=== PATIENT | female | born 1985 | race African-American/Black ===

== ENCOUNTER 2019-08-30 18:40 | Emergency (ER) | payer OTHER, SELFPAY ==
[2019-08-30 18:54] VITALS: BP 160/93; PULSE 97; RESP 16; TEMP 36.9; O2SAT 98
[2019-08-30 19:13] LABS: Glucose Point of Care 299 (65-105)
--- NOTE | 2019-08-30 19:34 | ED.GENADULT ---
HPI - General Adult General Chief complaint: Urogenital-Female Stated complaint: ABD PAIN EYES BURNING AND ITCHING Time Seen by Provider: 08/30/19 19:34 Source: patient and RN notes reviewed Mode of arrival: ambulatory Limitations: no limitations History of Present Illness HPI narrative: 33-year-old female presents with complaints of abdominal pain, polyuria, polydipsia, and intermittent blurred vision for the past 2 days. Symptoms has increased over the last 24 hours with increase suprapubic pain and urinary frequency. Tylenol and eye drops without relief. Non-complaint diabetic with hypertension and asthma. Marcela says she has been without medication for approximately 3 months. October says she is depressed but denies suicidal or homicidal ideation. Lost a child at 3 months ago. Denies URI symptoms at this time, had some 1 week ago. Denies hematuria, burning, and painful urination. Denies recent weight loss, rapid heart beat, dizziness, lightheadedness, headache, and alter mental status. Denies fever or chills. Denies nausea or vomiting. Denies chest pain or shortness of breath. October denies being , LMP 07/30/2019 due any day. Some parts of this dictation were generated by voice recognition software and may contain typographical and/or grammatical inaccuracies. Related Data Home Medications Medication Instructions Recorded Confirmed No Home Medications 08/30/19 08/30/19 Allergies Allergy/AdvReac Type Severity Reaction Status Date / Time shellfish derived Allergy Unknown Swelling Verified 08/30/19 18:57 Mushroom Allergy Unknown Rash Uncoded 08/30/19 18:57 Review of Systems Review of Systems: Narrative: CONSTITUTIONAL: Denies fever, chills, sweats. EYES: Denies visual changes, redness, discharge. Complains of intermittent blurred vision. ENT: Denies rhinorrhea, congestion, sore throat, otalgia. CARDIOVASCULAR: Denies chest pain, palpitations, edema. RESPIRATORY: Denies dyspnea, wheezing, cough. GASTROINTESTINAL: Complains of abdominal pain, polydipsia. Denies nausea, vomiting, diarrhea. GENITOURINARY: Complains of polyuria. Denies dysuria, hematuria, abnormal discharge. SKIN: Denies rash or itching. MUSCULOSKELETAL: Denies acute back pain, joint pain, or myalgia. NEUROLOGIC: Denies numbness or focal weakness. PSYCHIATRIC: Denies anxiety. Complains of depression. Denies suicidal or homicidal ideation. All other systems reviewed are negative, except as documented in HPI and below. [facility] Past Medical History Medical History (Updated 08/31/19 @ 22:57 by KEYA Carpio) Anxiety Asthma Bipolar disorder Depression Diabetes Hypertension Surgical History Surgical History (Updated 08/30/19 @ 20:32 by KEYA Carpio) History of section X4 History of myringoplasty Social History Social History Gender identity (if verbalized by the patient): Female Exam Narrative: Exam Narrative: GENERAL: This is a well-nourished, well-developed patient, in no apparent distress. Talks in full sentences and ambulates with steady gait without dyspnea. HEAD: normocephalic, atraumatic. EYES: PERRL. Sclera clear/white. Vision is grossly intact. EARS: External ears normal, auditory canals clear and without drainage, TMs normal without perforation. Hearing grossly intact. NOSE: External nose normal with no obvious nasal discharge, nares without redness, no rhinorrhea. THROAT: Mucous membranes moist, posterior pharynx clear. NECK: Neck supple, non-tender without lymphadenopathy, masses or thyromegaly. CARDIOVASCULAR: Regular rate and rhythm without murmurs, gallops, or rubs. RESPIRATORY: Clear to auscultation. Breath sounds equal bilaterally. No wheezes, rales, or rhonchi. GASTROINTESTINAL: Abdomen large, round, soft, with mild-moderate tenderness on palpation, nondistended. Bowel sounds are active. No hepato-splenomegaly, or palpable
== END 2019-08-30 19:53 | disposition short-term general hospital (02) ==
LOC: EXPCOLL 18:42
PROVIDERS: Emergency Provider Nurse Practitioner Family
DX: E11.65 Type 2 diabetes mellitus with hyperglycemia (principal); I10 Essential (primary) hypertension
CPT/HCPCS: 81003; 82948; 99212; G0463

== ENCOUNTER 2019-09-07 21:55 | Emergency (ER) | payer OTHER, SELFPAY ==
--- NOTE | 2019-09-07 22:05 | PC.NURSE ---
Pt called to triage. At that time pt recieved a phone call and stated that she had to go.
== END 2019-09-07 22:05 | disposition left against medical advice (07) ==
LOC: ANHED 22:12
DX: Z53.21 Procedure and treatment not carried out due to patient leaving prior to being seen by health care provider (principal)
CPT/HCPCS: 99199

== ENCOUNTER 2019-09-07 22:22 | Emergency (ER) | payer OTHER, SELFPAY ==
--- NOTE | ~2019-09-07 | US_ITS ---
EXAMINATION: US OB <=14 wk fetus w TV DATE: 09/08/2019 01:20 INDICATION: Vaginal bleeding with positive hCG. TECHNIQUE: Real-time pelvic ultrasound utilizing both a transvaginal and transabdominal probe was pe rformed. The interpreting radiologist was not present for the study. COMPARISON: None. FINDINGS: The uterus measures 7.8 x 5.4 x 5.8 cm. Endometrial complex measures 9 mm. No intrauterine gestation al sac or fluid. The right ovary measures 1.9 x 1.6 x 1.5 cm. The left ovary measures 1.7 x 1.2 x 1.9 cm. No abnormal adnexal masses identified. There is no free fluid in the pelvis. IMPRESSION: 1. Normal pelvic ultrasound with no intrauterine gestational sac. In the setting of positive hCG diff erential would remain early , failed or less likely nonvisualized ectopic pregnanc y. Reviewed, dictated and finalized at location A. [employer] IMPRESSION: 1. Normal pelvic ultrasound with no intrauterine gestational sac. In the settin g of positive hCG differential would remain early , failed o r less likely nonvisualized ectopic .
[2019-09-07 22:27] VITALS: BP 198/141; PULSE 102; RESP 18; TEMP 36.3; O2SAT 100
--- NOTE | 2019-09-07 23:48 | ED.FEMALEGU ---
HPI - Female Genitourinary General Chief complaint: Vaginal Bleeding Stated complaint: possible miscarriage Time Seen by Provider: 09/07/19 23:42 Source: patient and RN notes reviewed Mode of arrival: ambulatory Limitations: no limitations History of Present Illness HPI Narrative: A 33 y/o female, who is A1, presents to the ED with vaginal spotting beginning earlier today. She states that over the past 2 weeks she has had 5+ at home tests, so she is afraid that she is having a miscarriage. She reports associated lower ABD and lower back cramping. She notes that she has been under more stress because her grandmother just and that she has a hx of a miscarriage. She also notes that her LNMP was on 07/30/19. She denies any fevers, chills, CP, N/V/D, or SOB. MD elicited complaint: vaginal bleeding (spotting) Pertinent past history: prior miscarriages Onset (ago): hour(s) (earlier today) Location of symptoms: vaginal Vaginal bleeding: scant Associated symptoms: abdominal pain (lower cramping) and other (lower back cramping pain) Patient : Yes Possible : at home test positive (x5) Date of Last Menstrual Period: 07/30/19 Related Data : 6 Para: 4 Total number of abortions (spontaneous and elective): 1 Home Medications Medication Instructions Recorded Confirmed lisinopril 20 mg PO DAILY 09/07/19 metformin 500 mg PO BID 09/07/19 Allergies Allergy/AdvReac Type Severity Reaction Status Date / Time shellfish derived Allergy Unknown Swelling Verified 09/07/19 22:23 Mushroom Allergy Unknown Rash Uncoded 09/07/19 22:23 Review of Systems Review of Systems: All systems reviewed & are unremarkable except as noted in HPI and below Constitutional: Constitutional: Denies chills and Denies fever(s) Cardiovascular: Cardiovascular: Denies chest pain Respiratory: Respiratory: Denies dyspnea Gastrointestinal: Gastrointestinal: Reports abdominal pain (lower cramping), Denies diarrhea, Denies nausea and Denies vomiting Genitourinary: Genitourinary: Reports abnormal vaginal bleeding (spotting) Musculoskeletal: Musculoskeletal: Reports back pain (lower cramping) PMFSH Past Medical History Medical History Anxiety Asthma Bipolar disorder Depression Diabetes Eczema Hypertension Surgical History Surgical History History of section X4 History of myringoplasty Social History Social History Smoking packs per day: 0.5 Smoking cigarettes per day: 10.0 Smoking status: Current every day smoker Second hand tobacco smoke exposure: Yes Gender identity (if verbalized by the patient): Female Exam Narrative: Exam Narrative: GENERAL: Well-appearing, well-nourished, and in no acute distress. HEAD: Normocephalic, atraumatic. ENT: Mucous membranes moist. CHEST: Clear to auscultation. No respiratory distress. HEART: Regular rate and rhythm. Normal peripheral pulses. ABDOMEN: Soft, nontender, nondistended, normal active bowel sounds. Pelvic: Deferred by patient. EXTREMITIES: Normal range of motion. No edema. NEURO: Alert and oriented x3. Course Course Emergency Course: Patient informed of results. She is declined pelvic exam. Is felt patient is likely having a miscarriage given the fact that she had positive test last week at home and it is now essentially negative and her blood level is 7. Recommend that she follow-up with her OB and have repeat testing to ensure that her has truly failed and that she is not in early . Patient verbalized understanding. Vital Signs Vital signs: Vital Signs Temperature 97.3 F L 09/07/19 22:27 Pulse Rate 102 H 09/07/19 22:27 Respiratory Rate 18 09/07/19 22:27 Blood Pressure 198/141 H 09/07/19 22:27 Pulse Oximetry 100 09/07/19 22:27 Temperature 97.3 F L 0
[2019-09-08 00:52] LABS: Basophils Absolute Auto 0.1 K/mm3 (0.0-0.1); Basophils Percent Auto 0.5 % (0.2-1.2); Eosinophils Absolute Auto 0.2 K/mm3 (0-0.3); Eosinophils Percent Auto 1.4 % (0-4.4); Hemoglobin 13.5 g/dL (12.0-15.0); Immature Granulocyte Absolute 0.14 K/mm3 (0.00-0.031); Immature Granulocyte Percent A 0.9 % (0-0.5); Mean Corpuscular HGB Conc 32.1 g/dl (32-36); Mean Corpuscular Hemoglobin 27.2 pg (26-34); Mean Corpuscular Volume 84.7 fl (80-100); Mean Platelet Volume 8.5 fl (7.4-10.4); Monocytes Absolute Auto 0.7 K/mm3 (0.1-0.6); Monocytes Percent Auto 4.5 % (2.6-8.5); Neutrophils Absolute Auto 10.3 K/mm3 (1.3-6.7); Neutrophils Percent Auto 66.7 % (45.5-73.1); Platelet Count Result 399 k/mm3 (150-375); Red Blood Count 4.96 M/mm3 (4.2-5.4); White Blood Count 15.4 K/mm3 (4.5-10.0)
--- NOTE | 2019-09-08 01:14 | PC.NURSE ---
Patient taken to US.
[2019-09-08 01:31] LABS: Beta HCG Quantitative 7.78 mIU/ML
[2019-09-08 01:53] VITALS: BP 167/105; PULSE 89; RESP 18; O2SAT 100
== END 2019-09-08 02:44 | disposition home or self-care (01) ==
PROVIDERS: Emergency Provider Emergency Medicine
DX: O20.0 Threatened abortion (principal); O24.111 Pre-existing type 2 diabetes mellitus, in pregnancy, first trimester; E11.9 Type 2 diabetes mellitus without complications; Z79.84 Long term (current) use of oral hypoglycemic drugs; O10.911 Unspecified pre-existing hypertension complicating pregnancy, first trimester; O99.331 Smoking (tobacco) complicating pregnancy, first trimester; F17.210 Nicotine dependence, cigarettes, uncomplicated; Z3A.00 Weeks of gestation of pregnancy not specified
CPT/HCPCS: 36415; 76801; 76817; 84702; 85025; 86900; 86901; 99284

== ENCOUNTER 2020-10-26 14:04 | Emergency (ER) | payer OTHER, SELFPAY ==
--- NOTE | ~2020-10-26 | XR_ITS ---
XR knee LT 3V DATE: 10/26/2020 14:45 INDICATION: Fell down steps onto concrete one hour ago. Left knee injury, pain TECHNIQUE: [place], AP and lateral views; gonadal shielding COMPARISON: None FINDINGS: There is slight periarticular spurring of the lateral tibial plateau consistent with minima l osteoarthritis. Medial and lateral compartment and patellofemoral compartment joint spaces are rela tively well preserved. No fracture or dislocation or joint effusion. No periosteal reaction or bone destruction. IMPRESSION: No fracture or dislocation or joint effusion Reviewed, dictated and finalized at location A.
[2020-10-26 14:18] VITALS: BP 153/80; PULSE 105; RESP 20; TEMP 36.9; O2SAT 100
--- NOTE | 2020-10-26 14:29 | ED.LOWEXIN ---
HPI - Extremity Injury (Lower) General Chief Complaint: Extremity Injury, Lower Stated Complaint: Knee and ankle pain Time Seen by Provider: 10/26/20 14:18 Source: patient and RN notes reviewed Mode of arrival: ambulatory Limitations: no limitations History of Present Illness HPI Narrative: Patient presents today complaining of left knee and ankle injury just prior to arrival. States she slipped down 4 stairs at her home, twisting her knee and ankle. Denies numbness or tingling in the leg or foot. Currently rates her pain 8/10. Pain increases with weightbearing. She has not tried any treatment prior to arrival. She has been ambulatory since the injury. MD complaint: leg injury Related Data Home Medications Medication Instructions Recorded Confirmed No Home Medications 10/26/20 10/26/20 Allergies Allergy/AdvReac Type Severity Reaction Status Date / Time shellfish derived Allergy Unknown Swelling Verified 10/26/20 14:11 Mushroom Allergy Unknown Rash Uncoded 10/26/20 14:11 Review of Systems Review of Systems: Narrative: CONSTITUTIONAL: Denies body aches, fever, chills, or sweats. EYES: Denies visual changes, redness, or discharge. ENT: Denies rhinorrhea, congestion, sore throat, or otalgia. CARDIOVASCULAR: Denies chest pain, palpitations, or edema. RESPIRATORY: Denies cough or dyspnea. GASTROINTESTINAL: Denies abdominal pain, nausea, vomiting, or diarrhea. GENITOURINARY: Denies dysuria or hematuria. SKIN: Denies rash, itching, or wounds. MUSCULOSKELETAL: Denies back pain, or myalgia. + Left knee and ankle injury NEUROLOGIC: Denies headache, numbness, tingling, or weakness. PSYCH: Denies depression or anxiety. [facility] Past Medical History Medical History (Updated 10/26/20 @ 15:20 by Tamela Garrido, KEYA, ZAINAB) Anxiety Asthma Bipolar disorder Depression Diabetes Eczema Hypertension Surgical History Surgical History History of section X4 History of myringoplasty Social History Social History Smoking packs per day: 0.5 Smoking cigarettes per day: 10.0 Smoking status: Current every day smoker Second hand tobacco smoke exposure: Yes Gender identity (if verbalized by the patient): Female Comments At time of signature, I have reviewed and agree with nursing past medical, surgical, social and family history unless otherwise noted. Please see nursing chart for further information. There is no relevant family history pertinent to the presenting complaint Exam Narrative: Exam Narrative: GENERAL: Well-appearing, well-nourished, and in no acute distress. HEAD: Normocephalic, atraumatic. EYES: EOMI. No redness or drainage. Conjunctivae normal. ENT: Mucous membranes pink and moist. NECK: Normal AROM. CHEST: No respiratory distress. EXTREMITIES: Left knee: Bony tenderness to the lateral patella and lateral knee joint. No edema, ecchymosis noted. Very minor subcentimeter abrasion noted to the lateral knee. No abnormal movement of the patella. No tenderness to the patellar tendon. Full range of motion of the knee without increased pain. No tenderness to the medial knee or medial patella. No tenderness to the posterior knee. Patient does have some bony tenderness to the proximal fibula. Left ankle: No bony tenderness to the medial or lateral ankle. Patient has some point soft tissue tenderness to the anterior ankle without edema, ecchymosis, or erythema. Full AROM without increased pain. Distal sensation intact. Capillary refill normal. Pedal pulse normal. SKIN: Warm, dry, no rash. Capillary refill normal. Normal skin turgor. NEURO: No focal deficits. Alert and oriented x3. Gait steady. PSYCH: Normal affect. No signs of depression or anxiety. Course Vital Signs Vital signs: Vital Signs Temperature 98.5 F 10/26/20 14:18 Pulse Rate 105 H 10/26/20 14:
== END 2020-10-26 15:22 | disposition home or self-care (01) ==
PROVIDERS: Emergency Provider Nurse Practitioner
DX: S86.912A Strain of unspecified muscle(s) and tendon(s) at lower leg level, left leg, initial encounter (principal); S93.402A Sprain of unspecified ligament of left ankle, initial encounter; W10.9XXA Fall (on) (from) unspecified stairs and steps, initial encounter; F17.210 Nicotine dependence, cigarettes, uncomplicated; J45.909 Unspecified asthma, uncomplicated; E11.9 Type 2 diabetes mellitus without complications; I10 Essential (primary) hypertension
CPT/HCPCS: 73562; 99213; G0463

== ENCOUNTER 2020-11-13 19:52 | Emergency (ER) | payer OTHER, SELFPAY ==
[2020-11-13 19:58] VITALS: BP 154/94; PULSE 106; RESP 18; TEMP 38.1; O2SAT 98
--- NOTE | 2020-11-13 20:29 | ED.GENADULT ---
HPI - General Adult General Chief complaint: Upper Respiratory Infection Stated complaint: Body Aches,Headache Time Seen by Provider: 11/13/20 20:29 Source: patient Mode of arrival: ambulatory Limitations: no limitations History of Present Illness HPI narrative: 35-year-old female patient presents to the [facility] with complaints of cold symptoms that started yesterday. Patient states she laid down to take a nap she is feeling tired woke up with headache, congestion and chills and body aches. Denies any cough, chest pain or shortness of breath. Denies any ear pain, runny nose, stuffy nose or sore throat. Patient denies taking anything for her symptoms since they began. Patient states that she is an active smoker. Related Data Allergies Allergy/AdvReac Type Severity Reaction Status Date / Time shellfish derived Allergy Unknown Swelling Verified 11/13/20 20:02 Mushroom Allergy Unknown Rash Uncoded 11/13/20 20:02 Review of Systems Review of Systems: Narrative: CONSTITUTIONAL: Positive fever, body aches, chills, denies sweats. EYES: Denies visual changes, redness, or discharge. ENT: Denies rhinorrhea, positive congestion, denies sore throat, or otalgia. CARDIOVASCULAR: Denies chest pain, palpitations, or edema. RESPIRATORY: Denies cough or dyspnea. GASTROINTESTINAL: Denies abdominal pain, nausea, vomiting, or diarrhea. GENITOURINARY: Denies dysuria or hematuria. SKIN: Denies rash or itching. MUSCULOSKELETAL: Denies back pain, joint pain, or myalgia. NEUROLOGIC: Positive headache, denies numbness, or weakness. PSYCHIATRIC: Denies anxiety or depression. [facility] Past Medical History Medical History (Updated 11/13/20 @ 20:35 by KEYA Hayden) Anxiety Asthma Bipolar disorder Depression Diabetes Eczema Hypertension Surgical History Surgical History History of section X4 History of myringoplasty Social History Social History Smoking packs per day: 0.5 Smoking cigarettes per day: 10.0 Smoking status: Current every day smoker Second hand tobacco smoke exposure: Yes Gender identity (if verbalized by the patient): Female Comments At the time of my signature I agree with nursing past medical history, surgical, social, and family history. There is no relevant family history pertinent to the presenting complaint. Exam Narrative: Exam Narrative: GENERAL: ill-appearing, well-nourished, and in no acute distress. HEAD: Normocephalic, atraumatic. EYES: PERRLA and EOMI. ENT: Nares with erythema and edema noted bilaterally with the right nares swollen shut, yellow rhinorrhea, no epistaxis. Mucous membranes moist. Bilateral TMs with no erythema, foreign bodies to the canal. Posterior pharynx with slight erythema noted but no tonsil enlargement. NECK: Supple. No lymphadenopathy CHEST: Clear to auscultation. No respiratory distress. Patient able talk in clear complete sentences. HEART: Regular rate and rhythm. No murmur heard. Normal peripheral pulses. ABDOMEN: Soft, nontender, nondistended, normal active bowel sounds. EXTREMITIES: Normal range of motion. No edema. SKIN: Warm, dry, no rash. NEURO: No focal deficits. Alert and oriented x3. Course Vital Signs Vital signs: Vital Signs Temperature 38.1 C H 11/13/20 19:58 Pulse Rate 106 H 11/13/20 19:58 Respiratory Rate 18 11/13/20 19:58 Blood Pressure 154/94 H 11/13/20 19:58 Pulse Oximetry 98 11/13/20 19:58 Temperature 38.1 C H 11/13/20 19:58 Pulse Rate 106 H 11/13/20 19:58 Respiratory Rate 18 11/13/20 19:58 Blood Pressure 154/94 H 11/13/20 19:58 Pulse Oximetry 98 11/13/20 19:58 Vital signs reviewed The patient has been informed that they may have pre-hypertension or Hypertension based on a BP reading in the department. I recommend that the patient call the primary care provider listed on their discharge instructio
[2020-11-14 21:01] LABS: SARS-CoV-2 RNA PCR Positive
== END 2020-11-13 20:36 | disposition home or self-care (01) ==
PROVIDERS: Emergency Provider Nurse Practitioner Family
DX: U07.1 COVID-19 (principal); F17.210 Nicotine dependence, cigarettes, uncomplicated; J45.909 Unspecified asthma, uncomplicated; E11.9 Type 2 diabetes mellitus without complications; I10 Essential (primary) hypertension
CPT/HCPCS: 87804; 99213; C9803; G0463; U0003; U0005

== ENCOUNTER 2021-01-19 17:02 | Emergency (ER) | payer OTHER, SELFPAY ==
[2021-01-19 17:12] VITALS: BP 136/83; PULSE 95; RESP 16; TEMP 36.7; O2SAT 99
--- NOTE | 2021-01-19 18:12 | ED.GENADULT ---
HPI - General Adult General Chief complaint: Urogenital-Female Stated complaint: Abdominal Pain Time Seen by Provider: 01/19/21 18:05 Source: patient and RN notes reviewed Mode of arrival: ambulatory Limitations: no limitations History of Present Illness HPI narrative: Patient presents today complaining of lower abdominal discomfort, urinary frequency since yesterday. She came to the urgent care today requesting evaluation for UTI. Denies dysuria, hematuria, urgency. She has not tried any [id number] treatment prior to arrival. MD complaint: Abdominal discomfort, urinary frequency Related Data Allergies Allergy/AdvReac Type Severity Reaction Status Date / Time shellfish derived Allergy Unknown Swelling Verified 01/19/21 17:34 Mushroom Allergy Unknown Rash Uncoded 01/19/21 17:34 Review of Systems Review of Systems: Narrative: CONSTITUTIONAL: Denies body aches, fever, chills, or sweats. EYES: Denies visual changes, redness, or discharge. ENT: Denies rhinorrhea, congestion, sore throat, or otalgia. CARDIOVASCULAR: Denies chest pain, palpitations, or edema. RESPIRATORY: Denies cough or dyspnea. GASTROINTESTINAL: Denies abdominal pain, nausea, vomiting, or diarrhea. GENITOURINARY: Denies dysuria or hematuria.+ Lower abdominal discomfort, urinary frequency SKIN: Denies rash, itching, or wounds. MUSCULOSKELETAL: Denies back pain, joint pain, or myalgia. NEUROLOGIC: Denies headache, numbness, tingling, or weakness. PSYCH: Denies depression or anxiety. [facility] Past Medical History Medical History (Updated 01/19/21 @ 18:57 by Tamela Garrido, KEYA, ) Anxiety Asthma Bipolar disorder Depression Eczema Gestational diabetes Hypertension Surgical History Surgical History History of section X4 History of myringoplasty Social History Social History Smoking packs per day: 0.5 Smoking cigarettes per day: 10.0 Smoking status: Current every day smoker Second hand tobacco smoke exposure: Yes Gender identity (if verbalized by the patient): Female Comments At time of signature, I have reviewed and agree with nursing past medical, surgical, social and family history unless otherwise noted. Please see nursing chart for further information. There is no relevant family history pertinent to the presenting complaint Exam Narrative: Exam Narrative: GENERAL: Well-appearing, well-nourished, and in no acute distress. HEAD: Normocephalic, atraumatic. EYES: EOMI. No redness or drainage. Conjunctivae normal. ENT: Mucous membranes pink and moist. NECK: Normal AROM. CHEST: No respiratory distress. Clear to auscultation. HEART: Regular rate and rhythm. No murmur appreciated. Normal peripheral pulses. ABDOMEN: Soft, nontender, nondistended, normal active bowel sounds. MUSCULOSKELETAL: No bony tenderness. EXTREMITIES: Normal range of motion. No edema. SKIN: Warm, dry, no rash. Capillary refill normal. Normal skin turgor. NEURO: No focal deficits. Alert and oriented x3. Gait steady. PSYCH: Normal affect. No signs of depression or anxiety. Course Course Emergency Course: 1814- Called ER to transfer patient for blood glucose of 423. Spoke with Aly Jensen PA-C. States she would like me to call the PCP environmental consultant, Dr. Zepeda to see about outpatient management instead of transfer first since patient is unlikely in DKA. Will call Katelyn to discuss his opinion. 1820- Got ahold of Dr. Zepeda's answering service and left message for call back. 1844- Call back from Dr. Zepeda. Instructed to start patient on Metformin 500mg, 2 tablets daily and Glipizide ER 10mg daily. He will see patient in the office in the next 1-2 days. Passed these instructions on to the patient, who was agreeable to this plan. Vital Signs Vital signs: Vital Signs Temperature 98.0 F 01/19/21 17:12 Pulse Rate 95 0
--- NOTE | 2021-01-19 18:51 | PC.NURSE ---
1820-Pt notified awaiting physician to call back.
[2021-01-22 09:27] LABS: Glucose Point of Care 423 mg/dl (65-105)
== END 2021-01-19 19:05 | disposition home or self-care (01) ==
PROVIDERS: Emergency Provider Nurse Practitioner
DX: E72.51 Non-ketotic hyperglycinemia (principal); J45.909 Unspecified asthma, uncomplicated; I10 Essential (primary) hypertension; F17.210 Nicotine dependence, cigarettes, uncomplicated
CPT/HCPCS: 81003; 81025; 82948; 99213; G0463

== ENCOUNTER 2021-10-27 12:01 | Emergency (ER) | payer OTHER, SELFPAY ==
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
[2021-10-27 12:14] VITALS: BP 157/95; PULSE 96; RESP 18; TEMP 36.6; O2SAT 100
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
--- NOTE | 2021-10-27 14:15 | ECG_ITS ---
Measurements Intervals [place] Rate: 90 P: 66 [place]: 177 QRS: 52 QRSD: 77 T: 43 QT: 336 QTc: 413 Interpretive Statements SINUS RHYTHM POSSIBLE LEFT ATRIAL ENLARGEMENT [-0.1mV P WAVE IN V1/V2] NONSPECIFIC T-WAVE ABNORMALITY NO PREVIOUS ECG AVAILABLE FOR COMPARISON Electronically Signed On 10-27-2021 16:50:43 CDT by Laquita Lucas M.D.
--- NOTE | 2021-10-27 15:52 | PC.NURSE ---
Patient left without recieving discharge instructions.
== END 2021-10-27 15:52 | disposition home or self-care (01) ==
PROVIDERS: Emergency Provider Emergency Medicine
DX: S39.012A Strain of muscle, fascia and tendon of lower back, initial encounter (principal); I10 Essential (primary) hypertension; F17.210 Nicotine dependence, cigarettes, uncomplicated; F41.9 Anxiety disorder, unspecified; F31.9 Bipolar disorder, unspecified; Z86.32 Personal history of gestational diabetes; Z91.013 Allergy to seafood; Z91.018 Allergy to other foods; V43.53XA Car driver injured in collision with pick-up truck in traffic accident, initial encounter; Y92.410 Unspecified street and highway as the place of occurrence of the external cause
CPT/HCPCS: 71046; 72100; 81025; 93005; 99284

== ENCOUNTER 2021-12-29 15:29 | Emergency (ER) | payer OTHER, SELFPAY ==
[2021-12-29 15:39] VITALS: BP 124/79; PULSE 93; RESP 16; TEMP 36.2; O2SAT 99
[2021-12-29 15:40] VITALS: BP 124/79; PULSE 93; RESP 16; TEMP 36.2; O2SAT 99
--- NOTE | 2021-12-29 15:48 | ED.URI ---
HPI - URI/Sore Throat General Chief Complaint: Upper Respiratory Infection Stated Complaint: Covid Test Time Seen by Provider: 12/29/21 15:48 Source: patient and RN notes reviewed Mode of arrival: ambulatory Limitations: no limitations History of Present Illness HPI Narrative: 36-year-old female presents to the [facility] requesting a COVID test. States that she tested positive for COVID on Tuesday, 4 days ago at an at home test. Her employer, [employer], states that she needs a negative COVID test to return to work. Explained to patient that according to CDC guidelines she just has to quarantine for 5 days and that since she has not vaccinated she had to wear a fitted mask for 5 additional days at all times when around people. Patient had no other complaints at this time Patient denied any current symptoms. States that she just wants a COVID test Related Data Home Medications Medication Instructions Recorded Confirmed No Home Medications 12/29/21 12/29/21 Allergies Allergy/AdvReac Type Severity Reaction Status Date / Time shellfish derived Allergy Unknown Swelling Verified 12/29/21 15:39 Mushroom Allergy Unknown Rash Uncoded 12/29/21 15:39 Review of Systems Review of Systems: All systems reviewed & are unremarkable except as noted in HPI and below Constitutional: Constitutional: Reports no additional constitutional complaints, Denies chills and Denies fever(s) Eyes: Eyes: Reports no additional eye complaints ENT: Reports system reviewed and no additional complaints, except as documented Cardiovascular: Cardiovascular: Reports no additional cardiovascular complaints Respiratory: Respiratory: Reports no additional respiratory complaints Gastrointestinal: Gastrointestinal: Reports no additional gastrointestinal complaints Musculoskeletal: Musculoskeletal: Reports no additional musculoskeletal complaints Integumentary/Breasts: Skin/Breast: Reports system reviewed and no additional complaints, except as docu Neurologic: Reports system reviewed and no additional complaints, except as documented Psychiatric: Psychiatric: Reports no additional psychiatric complaints Allergic/Immunologic: Allergic/Immunologic: Reports no additional allergic/immunologic complaints PMF Past Medical History Medical History Anxiety Asthma Bipolar disorder Depression Eczema Gestational diabetes Hypertension Surgical History Surgical History History of section X4 History of myringoplasty Family History Family History Father Diabetes mellitus Hypertension Heart disease Mother Diabetes mellitus Heart disease Hypertension Social History Social History Smoking packs per day: 0.5 Smoking cigarettes per day: 10.0 Smoking status: Current every day smoker Second hand tobacco smoke exposure: Yes Gender identity (if verbalized by the patient): Female Comments At the time of my signature, I reviewed and agree with the nursing past medical, surgical, social, and family history. There is no relevant family history pertinent to the patient complaint. Exam Const: General: healthy appearing, no acute distress and alert Nutritional Appearance: well nourished and obese morbidly obese Orientation/consciousness: patient oriented x3 Limitations: no limitations HENMT: Head: normal to inspection Ears: external ears normal Face and sinus: normal facial exam Eyes: General: appearance normal, both eyes and all related structures Pupils: Equal, round and reactive pupils present Neck: Neck: normal visual inspection, no lymphadenopathy and no meningeal signs Chest: Chest palpation & inspection: normal inspection of the chest Resp: Effort & Inspection: normal respiratory effort and no use of ac
== END 2021-12-29 15:55 | disposition home or self-care (01) ==
PROVIDERS: Emergency Provider Nurse Practitioner
DX: B34.9 Viral infection, unspecified (principal); J45.909 Unspecified asthma, uncomplicated; I10 Essential (primary) hypertension
CPT/HCPCS: 99211; G0463

== ENCOUNTER 2022-03-24 19:35 | Emergency (ER) | payer OTHER, SELFPAY ==
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
[2022-03-24 19:46] VITALS: BP 205/117; PULSE 99; RESP 16; TEMP 36.6; O2SAT 99
[2022-03-24 19:51] LABS: Glucose Point of Care 301 mg/dl (65-105)
== END 2022-03-24 20:02 | disposition short-term general hospital (02) ==
LOC: EXPCOLL 19:39
PROVIDERS: Emergency Provider Nurse Practitioner Family
DX: I16.0 Hypertensive urgency (principal); E11.65 Type 2 diabetes mellitus with hyperglycemia; R42 Dizziness and giddiness; R10.9 Unspecified abdominal pain; F17.210 Nicotine dependence, cigarettes, uncomplicated; J45.909 Unspecified asthma, uncomplicated; Z79.4 Long term (current) use of insulin
CPT/HCPCS: 81003; 82948; 99212; G0463

== ENCOUNTER 2022-03-24 20:40 | Emergency (ER) | payer OTHER, SELFPAY ==
--- NOTE | ~2022-03-24 | XR_ITS ---
EXAMINATION: XR chest 2V Exam Date/Time: 03/24/2022 21:25 CDT HISTORY: HYN urgency, dizziness,hyperglycemia today hx anxiety,asthma Comparison: 10/27/2021. RESULT: Lines, tubes, and devices: None. Lungs and pleura: Ill-defined airspace opacity in the right lower lung, possibly lingular. Cardiomediastinal silhouette: Stable. Other: No acute osseous or upper abdominal finding. IMPRESSION: Subsegmental right lower lung consolidation may represent atelectasis or infection in the appropriate clinical context. Reviewed, dictated and finalized at location K. IMPRESSION: Subsegmental right lower lung consolidation may represent atelectasis or infect ion in the appropriate clinical context.
[2022-03-24 20:44] VITALS: BP 217/118; PULSE 89; RESP 16; TEMP 36.1; O2SAT 100
--- NOTE | 2022-03-24 20:49 | ECG_ITS ---
Measurements Intervals [place] Rate: 90 P: 49 [place]: 159 QRS: 41 QRSD: 75 T: 57 QT: 344 QTc: 423 Interpretive Statements SINUS RHYTHM POSSIBLE LEFT ATRIAL ENLARGEMENT BORDERLINE ECG COMPARED TO ECG 10/27/2021 14:27:03 NO SIGNIFICANT CHANGES Electronically Signed On 03-25-2022 6:38:29 CDT by Raoul Myers D.O.
[2022-03-24 21:06] LABS: Basophils Absolute Auto 0.1 K/mm3 (0.0-0.1); Basophils Percent Auto 0.3 % (0.2-1.2); Eosinophils Absolute Auto 0.1 K/mm3 (0-0.3); Eosinophils Percent Auto 0.9 % (0-4.4); Hematocrit 44.7 % (37.0-47.0); Hemoglobin 15.2 g/dL (12.0-15.0); Immature Granulocyte Absolute 0.09 K/mm3 (0.00-0.031); Immature Granulocyte Percent A 0.6 % (0-0.5); Lymphocytes Absolute Auto 3.84 K/mm3 (0.9-3.2); Lymphocytes Percent Auto 25.4 % (18.3-44.2); Mean Corpuscular Hemoglobin 29.1 pg (26-34); Mean Corpuscular Volume 85.5 fl (80-100); Mean Platelet Volume 8.6 fl (7.4-10.4); Monocytes Absolute Auto 0.7 K/mm3 (0.1-0.6); Monocytes Percent Auto 4.6 % (2.6-8.5); Neutrophils Absolute Auto 10.3 K/mm3 (1.3-6.7); Neutrophils Percent Auto 68.2 % (45.5-73.1); Platelet Count Result 398 k/mm3 (150-375); Red Blood Count 5.23 M/mm3 (4.2-5.4); Red Cell Distribution Width 12.5 % (11.5-14.5); White Blood Count 15.1 K/mm3 (4.5-10.0)
[2022-03-24 21:17] LABS: Alanine Aminotransferase 13 U/L (6-35); Albumin Level 4.3 g/dL (3.5-5.1); Alkaline Phosphatase 154 U/L (38-126); Anion Gap 6 mmol/L (8-16); Aspartate Amino Transferase 22 U/L (14-36); Bilirubin,Total 0.4 mg/dL (0.2-1.3); Blood Urea Nitrogen 4 mg/dL (7-17); Calcium 9.1 mg/dL (8.4-10.2); Carbon Dioxide 26 mmol/L (22-30); Chloride 98 mmol/L (98-107); Estimated CRCL calculation 144 ml/min; Estimated Glomerular Filt Rate > 60; Glucose 329 mg/dL (65-110); Lipase 56 U/L (23-300); Potassium 3.8 mmol/L (3.4-5.0); Sodium 130 mmol/L (137-145)
[2022-03-24 21:18] LABS: Partial Thromboplastin Time 29.6 SECONDS (22.3-36.8)
[2022-03-24 21:29] LABS: Troponin I < 0.012 ng/mL (0.000-0.034)
--- NOTE | 2022-03-24 21:47 | ED.DIZZY ---
HPI - Dizziness General Chief Complaint: Dizziness Stated Complaint: headache, Dizziness Time Seen by Provider: 03/24/22 21:04 History of Present Illness HPI Narrative: Patient is a 36-year-old female who presents to the ER with reports of headache and dizziness. Ongoing intermittently over the last couple days. Headache is throbbing and frontal. No radiation. Improves with Tylenol. Dizziness is intermittent and feels like she is unsteady. She has no symptoms at this time. Was at urgent care and blood pressure in the systolic range was between 190 and 200. They have referred her here for further evaluation. No chest pain or chest pressure. Patient has history of diabetes for has not been taking her Lantus. She reports she has had some elevated blood pressure pressures in the past but is not on any medication. Disease denies photophobia or phonophobia. No numbness or tingling arm or leg. No additional concerns. Related Data Home Medications Medication Instructions Recorded Confirmed insulin glargine 100 unit/mL (3 20 unit subcut DAILY 03/24/22 03/24/22 mL) subcutaneous pen (Lantus Solostar U-100 Insulin) pen needle, diabetic 32 gauge x 03/24/22 03/24/22/32 (TRUEplus Pen Needle) Allergies Allergy/AdvReac Type Severity Reaction Status Date / Time shellfish derived Allergy Unknown Swelling Verified 03/24/22 20:44 Fish Containing Products Allergy Swelling Verified 03/24/22 20:44 of Lip/Tongue/Throat Mushroom Allergy Unknown Rash Uncoded 03/24/22 20:44 Review of Systems Review of Systems: All systems reviewed & are unremarkable except as noted in HPI and below Constitutional: Constitutional: Denies chills, Denies fatigue and Denies fever(s) Eyes: Eyes: Denies change in vision and Denies photophobia Cardiovascular: Cardiovascular: Denies chest pain, Denies rapid heart rate and Denies radiating jaw, neck or arm pain Respiratory: Respiratory: Denies cough and Denies dyspnea Gastrointestinal: Gastrointestinal: Denies abdominal pain, Denies nausea and Denies vomiting Neurologic: Reports dizziness, Denies syncope, Reports headache(s), Denies focal weakness and Denies numbness PMFSH Past Medical History Medical History Anxiety Asthma Bipolar disorder Depression Eczema Gestational diabetes Hypertension Surgical History Surgical History History of section X4 History of myringoplasty Family History Family History Father Diabetes mellitus Hypertension Heart disease Mother Diabetes mellitus Heart disease Hypertension Social History Social History Smoking packs per day: 0.5 Smoking cigarettes per day: 10.0 Smoking status: Current every day smoker Second hand tobacco smoke exposure: Yes Gender identity (if verbalized by the patient): Female Exam Narrative: GENERAL: Well-appearing, morbidly obese, and in no acute distress. HEAD: Normocephalic, atraumatic. EYES: PERRL and EOMI. CHEST: Clear to auscultation. No respiratory distress. HEART: Regular rate and rhythm. Normal peripheral pulses. ABDOMEN: Soft, nontender, nondistended. EXTREMITIES: Normal range of motion. No edema. SKIN: Warm, dry, no rash. NEURO: Alert and oriented x3. PSYCH: Normal mood and affect. Course Course Emergency Course: Patient resting comfortably. Having no headache nausea at this time. Blood pressure has been improving on its own has been in 150s and 160s. Discussed with patient would like to start her on hydrochlorothiazide she needs to follow-up with her PCP for further evaluation. They will need to do repeat blood testing which she verbalized understanding of. Patient feels as though she has been under a lot of stress which i
[2022-03-24 21:48] VITALS: BP 161/105; PULSE 86; RESP 18; O2SAT 100
[2022-03-24 22:00] VITALS: BP 146/99; PULSE 87; RESP 22; O2SAT 100
[2022-03-24 22:15] VITALS: BP 159/95; PULSE 85; RESP 17; O2SAT 100
[2022-03-24 22:44] VITALS: BP 161/84; PULSE 82; RESP 13; O2SAT 100
== END 2022-03-24 23:29 | disposition home or self-care (01) ==
PROVIDERS: Emergency Medicine; Emergency Provider Emergency Medicine
DX: I10 Essential (primary) hypertension (principal); E11.9 Type 2 diabetes mellitus without complications; J45.909 Unspecified asthma, uncomplicated; T38.3X6A Underdosing of insulin and oral hypoglycemic [antidiabetic] drugs, initial encounter; F17.210 Nicotine dependence, cigarettes, uncomplicated; R91.8 Other nonspecific abnormal finding of lung field; R94.31 Abnormal electrocardiogram [ECG] [EKG]
CPT/HCPCS: 36415; 71046; 80053; 81003; 82948; 83690; 84484; 85025; 85610; 85730; 93005; 99284

== ENCOUNTER 2022-11-21 09:09 | Emergency (ER) | payer OTHER, SELFPAY ==
--- NOTE | ~2022-11-21 | XR_ITS ---
EXAMINATION: XR chest 2V DATE: 11/21/2022 11:14 INDICATION: Chest pain with coughing and congestion TECHNIQUE: PA and lateral views of the chest were obtained. COMPARISON: Chest radiograph dated 03/24/2022 FINDINGS: The lungs remain clear with no focal airspace opacities, pulmonary edema, pleural effusion or pneumot horax. The cardiomediastinal silhouette is normal. Mild thoracic spondylosis. IMPRESSION: 1. No acute cardiopulmonary disease. Reviewed, dictated and finalized at location A.
[2022-11-21 09:20] VITALS: BP 178/97; PULSE 101; RESP 18; TEMP 37; O2SAT 95
[2022-11-21 10:23] LABS: Strep Group A RT-PCR NOT DETECTED (Negative)
--- NOTE | 2022-11-21 10:32 | ED.URI ---
HPI - URI/Sore Throat General Chief Complaint: Upper Respiratory Infection Stated Complaint: uri Time Seen by Provider: 11/21/22 09:32 Source: patient Mode of arrival: ambulatory Limitations: no limitations History of Present Illness HPI Narrative: Patient is a 37 y/o female who presents to the ED with report of upper respiratory symptoms. Patient reports having symptoms for the last 2 days, including productive cough with clear sputum, myalgias, congestion, headache. She denies any difficulty breathing, chest pain, fevers, sore throat, nausea, vomiting, abdominal pain. Patient presents to the ED with her daughter who has also been sick with similar sx's. Patient has been taking DayQuil for her symptoms, she has not tried anything else. She does not currently have a primary care doctor. Related Data Allergies Allergy/AdvReac Type Severity Reaction Status Date / Time shellfish derived Allergy Unknown Swelling Verified 11/21/22 11:05 Fish Containing Products Allergy Swelling Verified 11/21/22 11:05 of Lip/Tongue/Throat Mushroom Allergy Unknown Rash Uncoded 11/21/22 11:05 Review of Systems Review of Systems: CONSTITUTIONAL: Denies fever, chills, or sweats. ENT: See HPI. CARDIOVASCULAR: Denies chest pain. RESPIRATORY: See HPI. GASTROINTESTINAL: Denies abdominal pain, nausea, vomiting, or diarrhea. GENITOURINARY: Denies dysuria or hematuria. SKIN: Denies rash or itching. MUSCULOSKELETAL: See HPI. NEUROLOGIC: See HPI. All systems reviewed & are unremarkable except as noted in HPI and below PMFSH Past Medical History Medical History Anxiety Asthma Bipolar disorder Depression Eczema Gestational diabetes Hypertension Surgical History Surgical History History of section X4 History of myringoplasty Family History Family History Father Diabetes mellitus Hypertension Heart disease Mother Diabetes mellitus Heart disease Hypertension Social History Social History Smoking packs per day: 0.5 Smoking cigarettes per day: 10.0 Smoking status: Current every day smoker Second hand tobacco smoke exposure: Yes Gender identity (if verbalized by the patient): Female Exam Narrative: GENERAL: Mildly unkempt, morbidly obese, BMI 50, non-toxic, in no acute distress. HEAD: Normocephalic, atraumatic. ENT: No significant tonsillar hypertrophy or exudate. No posterior pharynx erythema. Thick white discharge on tongue, consistent with oral thrush. NECK: Supple. No adenopathy, no masses. RESPIRATORY: Airway patent, respirations nonlabored. Clear to auscultation bilaterally, no rales, rhonchi, wheezing. CARDIOVASCULAR: Regular rate and rhythm without murmurs, rubs, or gallops. Radial pulses 2+ and equal bilaterally. MUSCULOSKELETAL: Moves all extremities. Strength/ROM intact without gross deformities. SKIN: Warm, dry, normal color. No rashes. NEURO: A&O X3. Speech clear. Cranial nerves II-XII grossly intact. Steady gait. No ataxic movements. PSYCHIATRIC: Appropriate mood and affect. Normal interaction. Course Vital Signs Vital signs: Vital Signs Temperature 98.6 F 11/21/22 09:20 Pulse Rate 101 H 11/21/22 09:20 Respiratory Rate 18 11/21/22 09:20 Blood Pressure 178/97 H 11/21/22 09:20 Pulse Oximetry 95 11/21/22 09:20 Oxygen Delivery Room Air 11/21/22 09:20 Temperature 98.3 F 11/21/22 11:37 Pulse Rate 82 11/21/22 11:37 Respiratory Rate 18 11/21/22 11:37 Blood Pressure 154/103 H 11/21/22 11:37 Pulse Oximetry 97 11/21/22 11:37 Oxygen Delivery Room Air 11/21/22 09:20 MDM - URI/Sore Throat MDM Narrative Medical decision making narrative: Patient presented to ED with 3-day history of upper respirat
[2022-11-21 10:34] LABS: Influenza A QL RT-PCR Negative (Negative); Influenza B QL RT-PCR Negative (Negative); SARS-CoV-2 RNA PCR Negative (Negative)
[2022-11-21 11:37] VITALS: BP 154/103; PULSE 82; RESP 18; TEMP 36.8; O2SAT 97
== END 2022-11-21 11:47 | disposition home or self-care (01) ==
PROVIDERS: Emergency Provider Physician Assistant
DX: J06.9 Acute upper respiratory infection, unspecified (principal); B37.0 Candidal stomatitis; R03.0 Elevated blood-pressure reading, without diagnosis of hypertension; Z20.822 Contact with and (suspected) exposure to COVID-19; F17.210 Nicotine dependence, cigarettes, uncomplicated; F41.9 Anxiety disorder, unspecified; J45.909 Unspecified asthma, uncomplicated; F32.A Depression, unspecified
CPT/HCPCS: 71046; 87636; 87651; 99283

== ENCOUNTER 2023-04-12 19:04 | Emergency (ER) | payer OTHER, SELFPAY ==
[2023-04-12 19:21] VITALS: BP 169/94; PULSE 94; RESP 16; TEMP 37; O2SAT 99
--- NOTE | 2023-04-12 19:29 | ED.URI ---
HPI - URI/Sore Throat General Chief Complaint: Upper Respiratory Infection Stated Complaint: Sinus/Sore Throat Time Seen by Provider: 04/12/23 19:29 Source: patient, RN notes reviewed and old records reviewed Mode of arrival: ambulatory Limitations: no limitations History of Present Illness HPI Narrative: 37-year-old female presents to the [facility] with complaints of sinus congestion and a cough. Patient is a smoker. Denies fevers, chest pain, abdominal pain. Has taken DayQuil. Related Data Allergies Allergy/AdvReac Type Severity Reaction Status Date / Time Fish Containing Products Allergy Severe Swelling Verified 04/12/23 19:57 of Lip/Tongue/Throat shellfish derived Allergy Severe Swelling Verified 04/12/23 19:57 Mushroom Allergy Mild Rash Uncoded 04/12/23 19:57 Review of Systems Review of Systems: All systems reviewed & are unremarkable except as noted in HPI and below Constitutional: Constitutional: Reports no additional constitutional complaints Eyes: Eyes: Reports no additional eye complaints ENT: Reports system reviewed and no additional complaints, except as documented Cardiovascular: Cardiovascular: Reports no additional cardiovascular complaints, Denies chest pain and Denies dyspnea Respiratory: Respiratory: Reports as per HPI, Reports chest congestion, Reports cough and Denies dyspnea Gastrointestinal: Gastrointestinal: Reports no additional gastrointestinal complaints, Denies abdominal pain, Denies nausea and Denies vomiting Musculoskeletal: Musculoskeletal: Reports no additional musculoskeletal complaints Integumentary/Breasts: Skin/Breast: Reports system reviewed and no additional complaints, except as docu Neurologic: Reports system reviewed and no additional complaints, except as documented Psychiatric: Psychiatric: Reports no additional psychiatric complaints Allergic/Immunologic: Allergic/Immunologic: Reports no additional allergic/immunologic complaints [facility] Past Medical History Medical History Anxiety Asthma Bipolar disorder Depression Diabetes Eczema Gestational diabetes Hyperglycemia Hypertension Surgical History Surgical History History of section X4 History of myringoplasty Family History Family History Father Diabetes mellitus Hypertension Heart disease Mother Diabetes mellitus Heart disease Hypertension Social History Social History Smoking packs per day: 0.5 Smoking cigarettes per day: 10.0 Smoking status: Current every day smoker Second hand tobacco smoke exposure: Yes Gender identity (if verbalized by the patient): Female Comments At the time of my signature, I reviewed and agree with the nursing past medical, surgical, social, and family history. There is no relevant family history pertinent to the patient complaint. Exam Const: General: cooperative, healthy appearing, comfortable, no acute distress, well developed, alert and well nourished Nutritional Appearance: well nourished and obese Orientation/consciousness: patient oriented x3 Limitations: no limitations HENMT: Head: normal to inspection Ears: hearing grossly normal bilaterally and external ears normal Face/Nose/Sinus: Normal external nose present, Normal nares present, Normal nasal mucous membranes and turbinates present, normal facial exam and face symmetric Face and sinus: normal facial exam and face symmetric Mouth: Yes Normal oral and palatal mucosa present, Yes lip normal and Yes moist mucous membranes Throat: posterior oropharynx normal, uvula midline and postnasal drainage Eyes: General: appearance normal, both eyes and all related structures Alignment and Position: alignment normal Periorbital: periorbital findings normal Pupils: Equal, ro
== END 2023-04-12 20:16 | disposition home or self-care (01) ==
PROVIDERS: Emergency Provider Nurse Practitioner; PCP Emergency Medicine
DX: J40 Bronchitis, not specified as acute or chronic (principal); F17.210 Nicotine dependence, cigarettes, uncomplicated; J45.909 Unspecified asthma, uncomplicated; E11.9 Type 2 diabetes mellitus without complications; I10 Essential (primary) hypertension; Z79.4 Long term (current) use of insulin
CPT/HCPCS: 99213; G0463

== ENCOUNTER 2023-05-17 17:33 | Emergency (ER) | payer OTHER, SELFPAY ==
[2023-05-17 17:46] VITALS: BP 131/89; PULSE 98; RESP 18; TEMP 36.2; O2SAT 100
--- NOTE | 2023-05-17 18:10 | ED.GENADULT ---
HPI - General Adult General Chief complaint: Allergic Reaction Stated complaint: Allergic Reaction/Dizziness Time Seen by Provider: 05/17/23 18:11 Source: patient, RN notes reviewed and old records reviewed Mode of arrival: ambulatory Limitations: no limitations History of Present Illness HPI narrative: 37-year-old female presents to the [facility] with red irritated dry skin that she describes very itchy for 2 days. Red itchy skin to the right abdomen. States that she was applying a heating pad for a long period of time. States that a blister formed by the heating pad. Has been applying Neosporin to the area. Has recently changed laundry detergent. Reports having a hive to her chin. No other hives noted. Also reports that under a skin fold on the left she has a couple of bumps that are itchy. No treatment prior to arrival Patient denies any fevers. No abdominal pain. Areas are not hot to touch. None or swollen. Related Data Home Medications Medication Instructions Recorded Confirmed atorvastatin 10 mg tablet 10 mg DIRECTED 05/17/23 05/17/23 losartan 100 mg tablet 100 mg DIRECTED 05/17/23 05/17/23 Allergies Allergy/AdvReac Type Severity Reaction Status Date / Time Fish Containing Products Allergy Severe Swelling Verified 04/12/23 19:57 of Lip/Tongue/Throat shellfish derived Allergy Severe Swelling Verified 04/12/23 19:57 Mushroom Allergy Mild Rash Uncoded 04/12/23 19:57 Review of Systems Review of Systems: All systems reviewed & are unremarkable except as noted in HPI and below Constitutional: Constitutional: Reports no additional constitutional complaints Eyes: Eyes: Reports no additional eye complaints ENT: Reports system reviewed and no additional complaints, except as documented Cardiovascular: Cardiovascular: Reports no additional cardiovascular complaints, Denies chest pain and Denies dyspnea Respiratory: Respiratory: Reports no additional respiratory complaints, Denies chest congestion, Denies cough and Denies dyspnea Gastrointestinal: Gastrointestinal: Reports no additional gastrointestinal complaints, Denies abdominal pain, Denies nausea and Denies vomiting Musculoskeletal: Musculoskeletal: Reports no additional musculoskeletal complaints Integumentary/Breasts: Skin/Breast: Reports as per HPI, Reports erythema and Reports rash Neurologic: Reports system reviewed and no additional complaints, except as documented Psychiatric: Psychiatric: Reports no additional psychiatric complaints Allergic/Immunologic: Allergic/Immunologic: Reports no additional allergic/immunologic complaints PMFSH Past Medical History Medical History Anxiety Asthma Bipolar disorder Depression Diabetes Eczema Gestational diabetes Hyperglycemia Hypertension Surgical History Surgical History History of section X4 History of myringoplasty Family History Family History Father Diabetes mellitus Hypertension Heart disease Mother Diabetes mellitus Heart disease Hypertension Social History Social History Smoking packs per day: 0.5 Smoking cigarettes per day: 10.0 Smoking status: Current every day smoker Second hand tobacco smoke exposure: Yes Gender identity (if verbalized by the patient): Female Comments At the time of my signature, I reviewed and agree with the nursing past medical, surgical, social, and family history. There is no relevant family history pertinent to the patient complaint. Exam Const: General: cooperative, healthy appearing, comfortable, no acute distress, well developed, alert, poor hygiene and well nourished Nutritional Appearance: well nourished and obese morbidly obese Orientation/consciousness: patient oriented x3 Limitatio
[2023-05-17 18:18] LABS: Glucose Point of Care 224 mg/dl (65-105)
== END 2023-05-17 18:26 | disposition home or self-care (01) ==
PROVIDERS: Emergency Provider Nurse Practitioner; PCP Emergency Medicine
DX: L25.9 Unspecified contact dermatitis, unspecified cause (principal); Z20.822 Contact with and (suspected) exposure to COVID-19; F17.210 Nicotine dependence, cigarettes, uncomplicated; J45.909 Unspecified asthma, uncomplicated; E11.9 Type 2 diabetes mellitus without complications; Z79.4 Long term (current) use of insulin; I10 Essential (primary) hypertension
CPT/HCPCS: 82948; 99212; G0463

== ENCOUNTER 2023-08-30 09:37 | Emergency (ER) | payer OTHER, SELFPAY ==
--- NOTE | ~2023-08-30 | XR_ITS ---
EXAMINATION: XR chest 2V DATE: 08/30/2023 11:09 INDICATION: Productive cough. TECHNIQUE: Frontal and lateral views of the chest were obtained. COMPARISON: Chest 2 views 11/21/2022 FINDINGS: There is a small right pleural effusion. There are airspace opacities in right mid and lowe r lung zones. No pneumothorax. The heart size is normal. IMPRESSION: 1. Airspace opacities in right mid and lower lung zones, consistent with pneumonia. 2. Small right pleural effusion. Reviewed, dictated and finalized at location A. [employer] IMPRESSION: 1. Airspace opacities in right mid and lower lung zones, consistent with pneumo power. 2. Small right pleural effusion.
[2023-08-30 09:56] VITALS: BP 120/85; PULSE 108; RESP 18; TEMP 36.1; O2SAT 98
--- NOTE | 2023-08-30 10:47 | ED.URI ---
HPI - URI/Sore Throat General Chief Complaint: Upper Respiratory Infection Stated Complaint: cough,fever strep throat/flu exposure Time Seen by Provider: 08/30/23 10:47 Source: patient, RN notes reviewed and old records reviewed Mode of arrival: ambulatory Limitations: no limitations History of Present Illness HPI Narrative: 37-year-old female presents to the [facility] with complaints of fever, cough, strep throat and flu exposure. Symptoms started on Tuesday, 3 days Reports that she had diarrhea yesterday, no abdominal pain. States that she has not had any today. Denies fevers. States that she takes DayQuil and NyQuil Patient is a smoker History of hypertension, diabetes and high cholesterol Onset (ago): day(s) (2) Related Data Home Medications Medication Instructions Recorded Confirmed atorvastatin 10 mg tablet 10 mg DIRECTED 05/17/23 08/30/23 losartan 100 mg tablet 100 mg DIRECTED 05/17/23 08/30/23 Allergies Allergy/AdvReac Type Severity Reaction Status Date / Time Fish Containing Products Allergy Severe Swelling Verified 08/30/23 10:22 of Lip/Tongue/Throat shellfish derived Allergy Severe Swelling Verified 08/30/23 10:22 Mushroom Allergy Mild Rash Uncoded 08/30/23 10:22 Review of Systems Review of Systems: All systems reviewed & are unremarkable except as noted in HPI and below Constitutional: Constitutional: Reports no additional constitutional complaints Eyes: Eyes: Reports no additional eye complaints ENT: Reports system reviewed and no additional complaints, except as documented Cardiovascular: Cardiovascular: Reports no additional cardiovascular complaints, Denies chest pain and Denies dyspnea Respiratory: Respiratory: Reports as per HPI, Denies chest congestion, Reports cough and Denies dyspnea Gastrointestinal: Gastrointestinal: Reports no additional gastrointestinal complaints, Denies abdominal pain, Denies nausea and Denies vomiting Musculoskeletal: Musculoskeletal: Reports no additional musculoskeletal complaints Integumentary/Breasts: Skin/Breast: Reports system reviewed and no additional complaints, except as docu Neurologic: Reports system reviewed and no additional complaints, except as documented Psychiatric: Psychiatric: Reports no additional psychiatric complaints Allergic/Immunologic: Allergic/Immunologic: Reports no additional allergic/immunologic complaints PMFSH Past Medical History Medical History Anxiety Asthma Bipolar disorder Depression Diabetes Eczema Gestational diabetes Hyperglycemia Hypertension Surgical History Surgical History History of section X4 History of myringoplasty Family History Family History Father Diabetes mellitus Hypertension Heart disease Mother Diabetes mellitus Heart disease Hypertension Social History Social History Smoking packs per day: 0.5 Smoking cigarettes per day: 10.0 Smoking status: Current every day smoker Second hand tobacco smoke exposure: Yes Gender identity (if verbalized by the patient): Female Comments At the time of my signature, I reviewed and agree with the nursing past medical, surgical, social, and family history. There is no relevant family history pertinent to the patient complaint. Exam Const: General: cooperative, comfortable, no acute distress, well developed, alert, ill appearing chronically and well nourished Nutritional Appearance: well nourished and obese Orientation/consciousness: patient oriented x3 Limitations: no limitations HENMT: Head: normal to inspection Ears: hearing grossly normal bilaterally, external ears normal, TM's normal bilaterally, EAC's normal, mastoids normal and no periauricular adenopathy Face/Nose/Sinus: Normal ext
[2023-08-30 11:01] LABS: Glucose Point of Care 124 mg/dl (65-105)
== END 2023-08-30 11:45 | disposition home or self-care (01) ==
PROVIDERS: Emergency Provider Nurse Practitioner; PCP Emergency Medicine
DX: J02.0 Streptococcal pharyngitis (principal); J18.9 Pneumonia, unspecified organism; I10 Essential (primary) hypertension; E11.9 Type 2 diabetes mellitus without complications; F41.9 Anxiety disorder, unspecified; F32.A Depression, unspecified; Z79.899 Other long term (current) drug therapy; Z20.822 Contact with and (suspected) exposure to COVID-19; F17.210 Nicotine dependence, cigarettes, uncomplicated
CPT/HCPCS: 71046; 82948; 87426; 87804; 87880; 99213; G0463

== ENCOUNTER 2024-04-19 11:02 | Emergency (ER) | payer OTHER, SELFPAY ==
--- NOTE | ~2024-04-19 | XR_ITS ---
XR chest 2V Ordering provider: Tony Last MD History: 38 years Female with . CP . Comparison: None. FINDINGS: MEDIASTINUM: The cardiac silhouette is not enlarged. LUNGS: No infiltrates, effusions or pneumothorax. OTHER: No free air under the diaphragm. IMPRESSION: No acute cardiopulmonary pathology. Reviewed, dictated and finalized at location A.
--- NOTE | 2024-04-19 11:08 | ECG_ITS ---
Test Date: 2024-04-19 11:12:35 Measurements Intervals [place] Rate: 82 P: 50 NV: 175 QRS: 34 QRSD: 69 T: 56 QT: 329 QTc: 386 Interpretive Statements SINUS RHYTHM POSSIBLE ANTERIOR MYOCARDIAL INFARCTION , PROBABLY OLD BASELINE ARTIFACT- I, III, AVR, AVL, AVF ABNORMAL ECG No previous ECG available for comparison Electronically Signed On 04-19-2024 11:13:39 CDT by Raoul Myers D.O.
[2024-04-19 11:18] VITALS: BP 128/76; PULSE 86; RESP 18; TEMP 36.2; O2SAT 99
[2024-04-19 11:27] LABS: Basophils Absolute Auto 0.1 K/mm3 (0.0-0.1); Basophils Percent Auto 0.4 % (0.2-1.2); Eosinophils Absolute Auto 0.2 K/mm3 (0-0.3); Eosinophils Percent Auto 1.3 % (0-4.4); Hematocrit 34.2 % (37.0-47.0); Hemoglobin 11.3 g/dL (12.0-15.0); Immature Granulocyte Absolute 0.09 K/mm3 (0.00-0.031); Immature Granulocyte Percent A 0.6 % (0-0.5); Lymphocytes Absolute Auto 4.75 K/mm3 (0.9-3.2); Lymphocytes Percent Auto 29.9 % (18.3-44.2); Mean Corpuscular Hemoglobin 29.4 pg (26-34); Mean Corpuscular Volume 88.8 fl (80-100); Mean Platelet Volume 8.4 fl (7.4-10.4); Monocytes Absolute Auto 0.8 K/mm3 (0.1-0.6); Monocytes Percent Auto 5.2 % (2.6-8.5); Neutrophils Percent Auto 62.6 % (45.5-73.1); Platelet Count Result 402 k/mm3 (150-375); Red Blood Count 3.85 M/mm3 (4.2-5.4); Red Cell Distribution Width 13.2 % (11.5-14.5); White Blood Count 15.9 K/mm3 (4.5-10.0)
[2024-04-19 11:38] LABS: Alanine Aminotransferase 14 U/L (6-35); Albumin Level 3.6 g/dL (3.5-5.1); Alkaline Phosphatase 79 U/L (38-126); Anion Gap 8 mmol/L (4-12); Aspartate Amino Transferase 17 U/L (14-36); Bilirubin,Total 0.2 mg/dL (0.2-1.3); Blood Urea Nitrogen 10 mg/dL (7-17); Calcium 9.1 mg/dL (8.4-10.2); Carbon Dioxide 25 mmol/L (22-30); Chloride 99 mmol/L (98-107); Estimated CRCL calculation 109 ml/min; Estimated Glomerular Filt Rate > 60; Glucose 232 mg/dL (65-110); Lipase 64 U/L (23-300); Potassium 3.2 mmol/L (3.4-5.0); Sodium 132 mmol/L (137-145)
[2024-04-19 11:43] LABS: INR 0.9; Prothrombin Time 13.1 Seconds (11.1-14.7)
[2024-04-19 11:50] LABS: Troponin I < 0.012 ng/mL (0.000-0.034)
--- NOTE | 2024-04-19 13:07 | ED.CHESTPAIN ---
HPI - Chest Pain General Chief Complaint: Chest Pain <CARTER Babb Last Filed: 04/19/24 13:14> Stated Complaint: CP <CARTER Babb Last Filed: 04/19/24 13:14> Time Seen by Provider: 04/19/24 13:07 <Nenita Rodriguez PA-C - Last Filed: 04/19/24 13:14> Focused HPI: Patient is a 38-year-old female who presents the ED via EMS with report of chest pain. Patient reports she began having pain in her left-sided chest/axillary region yesterday while at work. The pain recurred this morning while she was at the [facility]. She then walked home and states the pain continued to worsen which prompted her to contact EMS. Patient did report feeling mildly short of breath with the pain and with exertion. She states she wore a heart monitor 6-7 months ago and was told her blood was flowing backwards. She is supposed to make an appointment to follow-up with a gas appliance mechanic, but has not done so yet. She also reports having recent cough, congestion, rhinorrhea. Denies fevers. States her daughters were recently sick, recently diagnosed with strep throat. Patient denies current pain. History of diabetes, hyperlipidemia, hypertension. GENERAL: Well-appearing, Morbidly obese with BMI of 47.1, and in no acute distress. HEAD: Normocephalic, atraumatic. CHEST: Clear to auscultation. ?No respiratory distress. HEART: Regular rate and rhythm.? MSK: No chest wall tenderness. No peripheral edema. NEURO: ?Alert and oriented x3. Patient screened in triage and initial orders placed.? ?Additional care and disposition to be based upon?diagnostic testing and treatment. <CARTER Babb Last Filed: 04/19/24 13:14> Source: patient <CARTER Babb Last Filed: 04/19/24 13:14> Mode of arrival: ambulatory <CARTER Babb Last Filed: 04/19/24 13:14> Limitations: no limitations <CARTER Babb Last Filed: 04/19/24 13:14> History of Present Illness HPI narrative: Agree with HPI <Tony Last MD - Last Filed: 04/19/24 19:16> Related Data Home Medications: Home Medications Medication Instructions Recorded Confirmed atorvastatin 10 mg tablet 10 mg DIRECTED 05/17/23 08/30/23 losartan 100 mg tablet 100 mg DIRECTED 05/17/23 08/30/23 <Nenita Rodriguez PA-C - Last Filed: 04/19/24 13:14> Allergies/Adverse Reactions: Allergies Allergy/AdvReac Type Severity Reaction Status Date / Time Fish Containing Products Allergy Severe Swelling Verified 08/30/23 10:22 of Lip/Tongue/Throat shellfish derived Allergy Severe Swelling Verified 08/30/23 10:22 Mushroom Allergy Mild Rash Uncoded 08/30/23 10:22 <Nenita Rodriguez PA-C - Last Filed: 04/19/24 13:14> Review of Systems Review of Systems: All systems reviewed & are unremarkable except as noted in HPI and below <Tony Last MD - Last Filed: 04/19/24 19:16> [facility] Past Medical History Medical History: Medical History Anxiety Asthma Bipolar disorder Depression Diabetes Eczema Gestational diabetes Hyperglycemia Hypertension <Nenita Rodriguez PA-C - Last Filed: 04/19/24 13:14> Surgical History Surgical History: Surgical History History of section X4 History of myringoplasty <CARTER Babb Last Filed: 04/19/24 13:14> Family History Family History: Family History Father Diabetes mellitus Hypertension Heart disease Mother Diabetes mellitus Heart disease Hypertension <CARTER Babb Last Filed: 04/19/24 13:14> Social History Social History: Social History Smoking packs per day: 0.5 Smoking cigarettes per day: 10.0 Smoking status: Sanjeev
[2024-04-19] MEDS: POTASSIUM CHLORIDE 20 MEQ ER TABLET 40 MEQ PO (13:48)
[2024-04-19 13:49] VITALS: BP 128/82; PULSE 83; RESP 17; O2SAT 100
--- NOTE | 2024-04-19 14:15 | ECG_ITS ---
Test Date: 2024-04-19 14:19:28 Measurements Intervals [place] Rate: 73 P: 43 NH: 194 QRS: 32 QRSD: 100 T: 43 QT: 374 QTc: 412 Interpretive Statements SINUS RHYTHM BORDERLINE R WAVE PROGRESSION, ANTERIOR LEADS BASELINE ARTIFACT- I, III, AVL BORDERLINE ECG Compared to ECG 04/19/2024 11:12:35 NO SIGNIFICANT CHANGE Electronically Signed On 04-19-2024 15:06:13 CDT by Raoul Myers D.O.
[2024-04-19 14:19] LABS: BEDSIDEPREGUCG Negative (Negative)
[2024-04-19 14:20] LABS: Magnesium 1.9 mg/dL (1.6-2.3)
[2024-04-19 14:33] LABS: D Dimer < 0.27 ug/mL (<0.48)
[2024-04-19 14:58] VITALS: BP 127/82; PULSE 76; RESP 20; O2SAT 100
[2024-04-19 15:08] LABS: Troponin I < 0.012 ng/mL (0.000-0.034)
[2024-04-19 15:15] LABS: Influenza A QL RT-PCR Negative (Negative); Influenza B QL RT-PCR Negative (Negative); RSV RNA, RT-PCR Negative (Negative); SARS-CoV-2 RNA PCR Negative (Negative)
[2024-04-19 15:25] VITALS: BP 130/86; PULSE 77; RESP 20; TEMP 36.5; O2SAT 100
== END 2024-04-19 15:26 | disposition home or self-care (01) ==
PROVIDERS: Physician Assistant; Emergency Provider Emergency Medicine; PCP Emergency Medicine
DX: R07.89 Other chest pain (principal); Z20.822 Contact with and (suspected) exposure to COVID-19; I10 Essential (primary) hypertension; E11.9 Type 2 diabetes mellitus without complications; E66.01 Morbid (severe) obesity due to excess calories; Z68.42 Body mass index [BMI] 45.0-49.9, adult; J45.909 Unspecified asthma, uncomplicated; F17.210 Nicotine dependence, cigarettes, uncomplicated; Z79.4 Long term (current) use of insulin; R94.31 Abnormal electrocardiogram [ECG] [EKG]
CPT/HCPCS: 36415; 71046; 80053; 81025; 83690; 83735; 84484; 85025; 85380; 85610; 85730; 87637; 93005; 99284; A9270

== ENCOUNTER 2025-03-17 11:47 | Emergency (ER) | payer OTHER, SELFPAY ==
[2025-03-17 12:05] VITALS: BP 123/83; PULSE 93; RESP 18; TEMP 36.9; O2SAT 98
--- NOTE | 2025-03-17 13:03 | ED_ITS ---
HPI - URI/Sore Throat General Chief Complaint: Upper Respiratory Infection Stated Complaint: sinus congestion/vomiting Time Seen by Provider: 03/17/25 12:52 Source: patient and RN notes reviewed Mode of arrival: ambulatory Limitations: no limitations History of Present Illness HPI Narrative: Patient presents today complaining of nasal congestion, postnasal drip, cough, chills, sweats since last night. Denies fever or shortness of breath. She has tried some [id number] medication without improvement. History of asthma. Smokes 10 cigarettes per day. No known sick contacts. Related Data Home Medications ?Medication ?Instructions ?Recorded ?Confirmed ?Last Taken ?Type losartan 100 mg tablet 100 mg DIRECTED 05/17/23 08/30/23 Unknown History albuterol sulfate 90 mcg/actuation inhalation 03/17/25 Unknown History aerosol inhaler atorvastatin 10 mg tablet mg 03/17/25 Unknown History hydrochlorothiazide 12.5 mg tablet mg 03/17/25 Unknow n History metformin 500 mg tablet mg 03/17/25 Unknown History sertraline 50 mg tablet mg 03/17/25 Unknown History Allergies Allergy/AdvReac Type Severity Reaction Status Date / Time Fish Containing Products Allergy Severe Swelling Verified 03/17/25 12:51 of Lip/Tongue/Throat shellfish derived Allergy Severe Swelling Verified 03/17/25 12:51 Mushroom Allergy Mild Rash Uncoded 03/17/25 12:51 PMFSH Past Medical History Medical History Hyperglycemia Gestational diabetes Eczema Depression Bipolar disorder Anxiety Asthma Hypertension Diabetes Surgical History Surgical History History of myringoplasty History of section X4 Family History Family History Father Diabetes mellitus Hypertension Heart disease Mother Diabetes mellitus Heart disease Hypertension Social History Social History Smoking packs per day: 0.5 Smoking cigarettes per day: 10.0 Smoking status: Current every day smoker Second hand tobacco smoke exposure: Yes Gender identity (if verbalized by the patient): Female Comments At time of signature, I have reviewed and agree with nursing past medical, surgical, social and family history unless otherwise noted. Please see nursing chart for further information. There is no relevant family history pertinent to the presenting complaint Exam Narrative: GENERAL: Mildly ill-appearing, well-nourished, and in no acute distress. HEAD: Normocephalic, atraumatic. EYES: EOMI. No redness or drainage. Conjunctivae normal. ENT: Mucous membranes pink and moist. Nares congested with rhinorrhea. TMs normal bilaterally. Throat normal. Uvula midline. NECK: Normal AROM. Supple. No lymphadenopathy. CHEST: No respiratory distress. Clear to auscultation. HEART: Regular rate and rhythm. No murmur appreciated. EXTREMITIES: Normal range of motion. No edema. SKIN: Warm, dry, no rash. Capillary refill normal. Normal skin turgor. NEURO: No focal deficits. Alert and oriented x3. Gait steady. PSYCH: Normal affect. No signs of depression or anxiety. Course Course Level of Care: Express Care Visit Vital Signs Vital signs: Vital Signs Temperature 98.5 F 03/17/25 12:05 Pulse Rate 93 03/17/25 12:05 Respiratory Rate 18 03/17/25 12:05 Blood Pressure 123/83 03/17/25 12:05 Pulse Oximetry 98 03/17/25 12:05 Oxygen Delivery Room Air 03/17/25 12:05 Temperature 98.5 F 03/17/25 12:05 Pulse Rate 93 03/17/25 12:05 Respiratory Rate 18 03/17/25 12:05 Blood Pressure 123/83 03/17/25 12:05 Pulse Oximetry 98 03/17/25 12:05 Oxygen Delivery Room Air 03/17/25 12:05 Reviewed MDM - URI/Sore Throat MDM Narrative Medical decision making narrative: 39-year-old female patient presents today with cough, congestion, postnasal drip, chills and sweats since last night. History of asthma. [id number] medication without improvement. Upon exam, patient is mildly ill appearing with nasal congestion. Symptoms likely viral in etiology. Discussed [id number] medication use and duration of illness. Prescription for benzonatate sent to pharmacy. Vital signs stable. Anticipatory guidance given. Differential Diagnosis Differential diagnosis: Likely upper respiratory infection, viral infection, pharyngitis and other (COVID-19) Lab Data Attestation: I reviewed the patient's lab results. Lab results narrative: COVID negative Critical Care Time Critical Care Time Critical Care Time: No Discharge Plan Discharge Clinical Impression: Upper respiratory infection Qualifiers: URI type: unspecified URI Qualified Code(s): J06.9 - Acute upper respiratory infection, unspecified Patient Disposition: Home Condition: Stable Instructions: Upper Respiratory Infection (DC) Additional Instructions: Your COVID test is negative today. Your Symptoms are likely due to a viral illness, which is not treated with antibiotics. Virus symptoms can last for up to 7-10days. Take Tylenol or ibuprofen for pain or fever. Take the benzonatate for cough if needed. Rest and stay hydrated. Follow up with your PCP in 7 days if symptoms are not improving. Go to the ER immediately if you develop shortness of breath, difficulty swallowing, or any other concerning symptoms. Your blood pressure was elevated above 120/80 today at Urgent Care. This puts you above the threshold for follow up. Please schedule a followup visit with your personal physician as soon as possible, for further evaluation and treatment. Even blood pressure exceeding 120/80 may indicate pre-hypertension. Patient Language: Emirati Prescriptions: New benzonatate 200 mg capsule 200 mg PO TID PRN (Reason: cough) Qty: 20 0RF No Action (DME) Aerochamber MV Spacer See Rx Instructions .Route Qty: 1 0RF Rx Instructions: As directed losartan 100 mg tablet 100 mg DIRECTED metformin 500 mg tablet atorvastatin 10 mg tablet albuterol sulfate 90 mcg/actuation HFA aerosol inhaler INHALATION sertraline 50 mg tablet hydrochlorothiazide 12.5 mg tablet hydrochlorothiazide 25 mg tablet 25 mg PO DAILY Qty: 14 0RF insulin glargine [Lantus Solostar U-100 Insulin] 100 unit/mL (3 mL) insulin pen 20 unit SUBCUT DAILY Qty: 15 0RF Rx Instructions: LAST REFILL UNTIL SEEN (DME) pen needle, diabetic [TRUEplus Pen Needle] 32 gauge x 5/32 needle See Rx Instructions .ROUTE .COMPLEX Qty: 100 0RF Dose Instruction: USE DIRECTED Rx Instructions: Use with Lantus-LAST REFILL UNTIL SEEN Follow-up/Referrals: Flako Rhodes MD [Primary Care Provider, Family Practice] Stand Alone Forms: Work/School Release IP Time of Disposition: 13:30
[2025-03-17 13:37] LABS: EDCOVIDSCREEN Negative (Negative)
== END 2025-03-17 13:34 | disposition home or self-care (01) ==
PROVIDERS: Emergency Provider Nurse Practitioner; PCP Emergency Medicine
DX: J06.9 Acute upper respiratory infection, unspecified (principal); Z20.822 Contact with and (suspected) exposure to COVID-19; J45.909 Unspecified asthma, uncomplicated; F31.9 Bipolar disorder, unspecified; F41.8 Other specified anxiety disorders; E11.9 Type 2 diabetes mellitus without complications; I10 Essential (primary) hypertension; Z79.84 Long term (current) use of oral hypoglycemic drugs; F17.210 Nicotine dependence, cigarettes, uncomplicated
CPT/HCPCS: 87426; 99213; G0463

== ENCOUNTER 2025-04-29 09:27 | Emergency (ER) | payer OTHER, MEDICAID, SELFPAY ==
--- NOTE | ~2025-04-29 | XR_ITS ---
EXAMINATION: XR hip RT min 2V, 04/29/2025 10:06 CDT HISTORY: RT posterior hip pain post fall 3x days COMPARISON: No comparisons available. Findings: No acute fracture or malalignment. No significant degenerative changes. Soft tissues unremarkable. Impression: No acute fracture or malalignment. Reviewed, dictated and finalized at location P. Impression: No acute fracture or malalignment.
[2025-04-29 09:50] VITALS: BP 155/89; PULSE 89; RESP 18; TEMP 36.3; O2SAT 97
--- NOTE | 2025-04-29 09:54 | ED_ITS ---
HPI - Fall General Chief Complaint: Fall Stated Complaint: Fall Injury, Lower Back Pain Time Seen by Provider: 04/29/25 09:55 Source: patient, RN notes reviewed and old records reviewed Mode of arrival: ambulatory Limitations: no limitations History of Present Illness HPI Narrative: 39-year-old female presents to the [facility] with complaints of right lower back, right hip pain. States that she fell either Tuesday or . It states that she has taken ibuprofen and Tylenol. Denies any belly pain. Denies saddle anesthesia. Walks with a normal gait. No midline tenderness. No loss or retention of bowel or bladder Related Data Home Medications ?Medication ?Instructions ?Recorded ?Confirmed ?Last Taken ?Type losartan 100 mg tablet 100 mg PO DIRECTED 08/30/23 Unknown History albuterol sulfate 90 mcg/actuation inhalation 03/17/25 Unknown History aerosol inhaler atorvastatin 10 mg tablet 10 mg 03/17/25 Unknown Hist ory metformin 500 mg tablet 500 mg 03/17/25 Unknown His tory Allergies Allergy/AdvReac Type Severity Reaction Status Date / Time Fish Containing Products Allergy Severe Swelling Verified 04/29/25 10:19 of Lip/Tongue/Throat shellfish derived Allergy Severe Swelling Verified 04/29/25 10:19 Review of Systems 2 Review of Systems: All systems reviewed & are unremarkable except as noted in HPI and below Constitutional: Constitutional: Reports no additional constitutional complaints Cardiovascular: Cardiovascular: Reports no additional cardiovascular complaints, Denies chest pain and Denies dyspnea Respiratory: Respiratory: Reports no additional respiratory complaints, Denies chest congestion, Denies cough and Denies dyspnea Musculoskeletal: Musculoskeletal: Reports as per HPI Integumentary/Breasts: Skin/Breast: Reports system reviewed and no additional complaints, except as docu PMFSH Past Medical History Medical History Hyperglycemia Gestational diabetes Eczema Depression Bipolar disorder Anxiety Asthma Hypertension Diabetes Surgical History Surgical History History of myringoplasty History of section X4 Family History Family History Father Diabetes mellitus Hypertension Heart disease Mother Diabetes mellitus Heart disease Hypertension Social History Social History Smoking packs per day: 0.5 Smoking cigarettes per day: 10.0 Smoking status: Current every day smoker Second hand tobacco smoke exposure: Yes Gender identity (if verbalized by the patient): Female Comments At the time of my signature, I reviewed and agree with the nursing past medical, surgical, social, and family history. There is no relevant family history pertinent to the patient complaint. Exam 2 Const: General: cooperative, healthy appearing, comfortable, no acute distress, well developed, alert and well nourished Nutritional Appearance: w ell nourished and obese Orientation/consciousness: patient oriented x3 L imitations: no limitations HENMT: Head: normal to inspection Eyes: General: appearance normal, both eyes and all related structures A lignment and Position: alignment normal Neck: Neck: normal visual inspection, full ROM, no lymphadenopathy and no meningeal signs Chest: Chest palpation & inspection: normal inspection of the chest Resp: Effort & Inspection: normal respiratory effort and able to speak in complete sentences Cardio: Rate: regular rate GI: GI Palp: No abdominal tenderness Back/Spine/Pelvis: Back: no CVA tenderness, No sacral edema, No ecchymosis and back tenderness Cervical Spine: No Cervical spine tenderness T horacic/Lumbar Spine: No thoracic spinal tenderness and No lumbar spinal tenderness Back/spine/pelvis image: 1. Reports discomfort with movement. No erythema, ecchymosis or rashes noted. No midline tenderness. Skin: General skin exam: normal color and no rashes or lesions noted Neuro: General: patient oriented x3, gait normal, moves all extremities and no meningeal signs Cognition (Neuro): normal cognition Speech: normal speech Gait exam (Neuro): Normal gait present Extrem: General: normal to inspection, full ROM, capillary refill normal and normal gait Psych: Appearance: grossly normal and well kempt Mental Status: mental status grossly normal Speech and movement: Normal speech and movement present and Clear speech present Affect: normal affect Attitude: cooperative Course Course Level of Care: Express Care Visit Vital Signs Vital signs: Vital Signs Temperature 97.3 F L 04/29/25 09:50 Pulse Rate 89 04/29/25 09:50 Respiratory Rate 18 04/29/25 09:50 Blood Pressure 155/89 H 04/29/25 09:50 Pulse Oximetry 97 04/29/25 09:50 Oxygen Delivery Room Air 04/29/25 09:50 Temperature 97.3 F L 04/29/25 09:50 Pulse Rate 89 04/29/25 09:50 Respiratory Rate 18 04/29/25 09:50 Blood Pressure 155/89 H 04/29/25 09:50 Pulse Oximetry 97 04/29/25 09:50 Oxygen Delivery Room Air 04/29/25 09:50 Reviewed MDM - Fall MDM Narrative Medical decision making narrative: Patient sitting in exam room. Patient is nontoxic, vitals stable except blood pressure is elevated. Patient reports that she is treated with blood pressure medication, managed by primary care provider. Reports right hip pain that occurred either Tuesday or of last week after falling onto her hip. X- ray negative. Patient appropriate for outpatient treatment Patient requesting a work note Discharge instructions reviewed with patient, as well as provided in writing per nursing staff. The instructions also include specific and strict return/GO TO THE ER as well as f/u information. All questions have been answered, and the patient deny any further questions with discharge and discharge plan. Some parts of this dictation were generated by voice recognition software and may contain typographical and/or grammatical inaccuracies. Differential Diagnosis Differential diagnosis: Likely other (Contusion, back pain, sprain, strain, fracture) Imaging Data Radiologist's impression: EXAMINATION: XR hip RT min 2V, 04/29/2025 10:06 CDT HISTORY: RT posterior hip pain post fall 3x days COMPARISON: No comparisons available. Findings: No acute fracture or malalignment. No significant degenerative changes. Soft tissues unremarkable. Impression: No acute fracture or malalignment. Critical Care Time Critical Care Time Critical Care Time: No Discharge Plan Discharge Clinical Impression: Acute right-sided low back pain, History of fall Patient Disposition: Home Condition: Stable Instructions: Antibiotic Form, Acute Low Back Pain (ED), Lower Back Exercises (ED) Additional Instructions: Take ibuprofen as directed to decrease inflammation and to help pain. Take Baclofen (muscle relaxer) as directed. Do not drink, drive, operate machinery, or do anything dangerous while taking this medication Exercise:Combine aerobic exercise, like walking or swimming, with specific exercises to keep the muscles in your back and abdomen strong and flexible. Proper Lifting:Be sure to lift heavy items with your legs, not your back. Do not bend over to pick something up. Keep your back straight and bend at your knees. Weight:Maintain a healthy weight. Being overweight puts added stress on your lower back. Avoid Smoking:Both the smoke and the nicotine cause your spine to age faster than normal. Proper Posture:Good posture is important for avoiding future problems. A therapist can teach you how to safely stand, sit, and lift. Use warm moist heat to help with pain. Using topical such as Biofreeze, Simeon-Mcnamara or Aspercreme can also help Follow up with Primary provider in 2-3 days, This may become a chronic condition and they will be the one to help manage your pain and order additional testing. Go to the nearest ER if you develop problems with bladder/bowel function, weakness or loss of feeling in one or both of your legs. Patient Language: Georgian Prescriptions: New baclofen 10 mg tablet 10 mg PO TID PRN (Reason: muscle pain) Qty: 10 0RF No Action (DME) Aerochamber MV Spacer See Rx Instructions .Route Qty: 1 0RF Rx Instructions: As directed losartan 100 mg tablet 100 mg PO DIRECTED metformin 500 mg tablet 500 mg atorvastatin 10 mg tablet 10 mg albuterol sulfate 90 mcg/actuation HFA aerosol inhaler INHALATION hydrochlorothiazide 25 mg tablet 25 mg PO DAILY Qty: 14 0RF insulin glargine [Lantus Solostar U-100 Insulin] 100 unit/mL (3 mL) insulin pen 20 unit SUBCUT DAILY Qty: 15 0RF Rx Instructions: LAST REFILL UNTIL SEEN (DME) pen needle, diabetic [TRUEplus Pen Needle] 32 gauge x 5/32 needle See Rx Instructions .ROUTE .COMPLEX Qty: 100 0RF Dose Instruction: USE DIRECTED Rx Instructions: Use with Lantus-LAST REFILL UNTIL SEEN Follow-up/Referrals: Flako Rhodes MD [Primary Care Provider, Family Practice] - 1 Week Stand Alone Forms: Work/School Release IP Time of Disposition: 10:28
== END 2025-04-29 10:37 | disposition home or self-care (01) ==
PROVIDERS: Emergency Provider Nurse Practitioner; PCP Emergency Medicine
DX: M54.50 Low back pain, unspecified (principal); F17.210 Nicotine dependence, cigarettes, uncomplicated; I10 Essential (primary) hypertension; E11.9 Type 2 diabetes mellitus without complications; Z79.84 Long term (current) use of oral hypoglycemic drugs; Z79.4 Long term (current) use of insulin; J45.909 Unspecified asthma, uncomplicated
CPT/HCPCS: 73502; 99213; G0463